=== PATIENT | female | born 1965 | race Caucasian/White ===

== ENCOUNTER → 2024-04-21 | Outpatient (CLI) | payer BC, SELFPAY ==
[2024-04-21 12:37] LABS: Basophils # (Auto) 0.1 Thou/mm3 (0.0-0.2); Basophils % (Auto) 1 % (0-2.5); Eosinophils # (Auto) 0.1 Thou/mm3 (0.0-0.5); Eosinophils % (Auto) 2 % (0-10); Hematocrit 38.2 % (36.0-46.0); Hemoglobin 12.6 g/dL (12.0-16.0); Immature Granulocytes % (Auto) 1 % (0-0); Immature Granulocytes Auto 0.03 Thou/mm3 (0.00-0.00); Lymphocytes % (Auto) 30 % (10-50); Mean Corpuscular Hemoglobin 29.5 pg (25.0-35.0); Mean Corpuscular Volume 90 fL (80-100); Monocytes # (Auto) 0.4 Thou/mm3 (0.0-0.8); Monocytes % (Auto) 6 % (0-12); Neutrophils % (Auto) 61 % (37-80); Nucleated Red Blood Cell % 0 /100 WBC (0); Platelet Count 372 Thou/mm3 (140-440); RDW Standard Deviation 41.1 fL (36.4-46.3); Red Blood Count 4.27 Miln/mm3 (4.00-5.20); White Blood Count 6.6 Thou/mm3 (3.6-11.0)
[2024-04-21 12:43] LABS: INR 0.9 (0.9-1.3); Prothrombin Time 10.3 Seconds (9.0-12.2)
[2024-04-21 12:47] LABS: Anion Gap 7 (7-16); BUN/Creatinine Ratio 25 Ratio (12-20); Blood Urea Nitrogen 15 mg/dL (9-23); Carbon Dioxide 31.3 mMol/L (20.0-31.0); Chloride 106 mMol/L (98-107); Creatinine (Component) 0.6 mg/dL (0.6-1.3); Glucose 86 mg/dL (74-106); Osmolality,Calculated 286 (275-295); Potassium 4.4 mMol/L (3.4-5.1); Sodium 144 mMol/L (136-145); eGFR > 60 See Note
== END | disposition home or self-care (01) ==
LOC: COPL 11:27
PROVIDERS: PCP Internal Medicine; Referring Provider Internal Medicine; Visit Provider Internal Medicine
DX: I25.10 Atherosclerotic heart disease of native coronary artery without angina pectoris (principal); I48.91 Unspecified atrial fibrillation
CPT/HCPCS: 36415; 80048; 85025; 85610; 85730

== ENCOUNTER → 2024-08-08 | Outpatient (CLI) | payer BC, SELFPAY ==
--- NOTE | 2024-08-08 08:19 | XR_ITS ---
Examination: Diagnostic digital mammography, bilateral Computer aided detection 3-D breast Tomosynthesis, bilateral Date and time of exam: 08/08/2024, 8:25 AM Comparisons: September 2012 through December 2023 Indications:Six-month follow-up left breast nodular density. Technique: Nonmagnified MLO, CC views of the breasts to been obtained, reconstructed from 3-D Tomosynthesis images. R2 computer aided detection program utilized for evaluation of suspicious masses and/or abnormal calcifications. 3-D Tomosynthesis images obtained. Findings: There are scattered areas of fibroglandular density. Focal asymmetry left upper outer quadrant. Otherwise, no evidence of abnormal masses or suspicious calcifications. Stable right port partially obstructs the 12:00 region of the right breast. Stable right postbiopsy marker clips. Impression: Left focal asymmetry as above. Spot compression views and ultrasound evaluation recommended.
[2024-08-08 08:51] LABS: Quantiferon-TB* See Sep Rpt
[2024-08-08 09:05] LABS: Collection Type, Urine Clean Catch
[2024-08-08 09:28] LABS: Basophils # (Auto) 0.1 Thou/mm3 (0.0-0.2); Basophils % (Auto) 1 % (0-2.5); Eosinophils # (Auto) 0.2 Thou/mm3 (0.0-0.5); Eosinophils % (Auto) 2 % (0-10); Hematocrit 40.2 % (36.0-46.0); Hemoglobin 13.2 g/dL (12.0-16.0); Immature Granulocytes % (Auto) 0 % (0-0); Immature Granulocytes Auto 0.02 Thou/mm3 (0.00-0.00); Lymphocytes # (Auto) 1.7 Thou/mm3 (1.0-4.8); Lymphocytes % (Auto) 21 % (10-50); Mean Corpuscular HGB Conc 32.8 g/dl (31.0-37.0); Mean Corpuscular Hemoglobin 29.2 pg (25.0-35.0); Mean Corpuscular Volume 89 fL (80-100); Monocytes # (Auto) 0.4 Thou/mm3 (0.0-0.8); Monocytes % (Auto) 4 % (0-12); Neutrophils # (Auto) 5.6 Thou/mm3 (1.8-7.7); Neutrophils % (Auto) 71 % (37-80); Nucleated Red Blood Cell % 0 /100 WBC (0); Platelet Count 367 Thou/mm3 (140-440); RDW Standard Deviation 42.5 fL (36.4-46.3); Red Blood Count 4.52 Miln/mm3 (4.00-5.20); White Blood Count 7.9 Thou/mm3 (3.6-11.0)
[2024-08-08 09:38] LABS: Glucose Estimated Average 103 mg/dL (80-131); Hemoglobin A1C 5.2 % Hgb (4.8-6.0)
[2024-08-08 09:46] LABS: Amphetamine/Methamp Scrn,U Negative (Negative); Barbiturate Screen,Urine Negative (Negative); Benzodiazepines Screen,Urine Positive (Negative); Benzoylecgonine Screen, Ur Negative (Negative); Fentanyl Screen,Urine Negative (Negative); Opiate Screen,Urine Negative (Negative); THC Screen,Urine Negative (Negative)
[2024-08-08 09:48] LABS: Iron 90 mcg/dL (50-170); Percent Iron Saturation 23 % (20-55); Total Iron Binding Capacity 377 mcg/dL (250-425); Unsaturated Iron Binding 287 (225-295)
[2024-08-08 09:52] LABS: Alanine Aminotransferase 14 U/L (10-49); Albumin, Serum 4.2 gm/dL (3.4-4.8); Albumin/Globulin Ratio 1.9 (1.2-2.2); Alkaline Phosphatase 152 U/L (46-116); Anion Gap 9 (7-16); Aspartate Amino Transferase 19 U/L (0-34); BUN/Creatinine Ratio 28 Ratio (12-20); Bilirubin,Total 0.4 mg/dL (0.3-1.2); Blood Urea Nitrogen 17 mg/dL (9-23); C-Reactive Protein < 0.5 mg/dL (0.0-0.9); Calcium 9.5 mg/dL (8.3-10.6); Calcium (Corrected) 9.5 mg/dL (8.5-10.1); Carbon Dioxide 29.2 mMol/L (20.0-31.0); Cardiac Risk Estimate 2.3 RATIO (3.7-5.6); Chloride 107 mMol/L (98-107); Cholesterol 161 mg/dL (132-200); Creatinine (Component) 0.6 mg/dL (0.6-1.3); Folate > 24.00 ng/mL (>5.38); Free T4 (Free Thyroxine) 1.02 ng/dL (0.89-1.76); Globulin 2.2 gm/dL (2.3-3.5); Glucose 90 mg/dL (74-106); HDL Cholesterol 70 mg/dL (40-60); LDL Cholesterol,Calculated 78 mg/dL (0-130); Osmolality,Calculated 290 (275-295); Potassium 4.6 mMol/L (3.4-5.1); Sodium 145 mMol/L (136-145); Thyroid Stimulating Hormone 1.14 uIU/mL (0.55-4.78); Total Protein 6.4 gm/dL (5.7-8.2); Triglycerides 64 mg/dL (30-150); Vitamin B12 403 pg/mL (211-911); Vitamin D 25 Hydroxy Total 22.1 ng/mL (7.3-40.2); eGFR > 60 See Note
[2024-08-08 09:58] LABS: Bilirubin,Urine Negative (Negative); Blood,Urine Trace (Negative); Clarity,Urine Clear (Clear/Hazy); Color,Urine Yellow (Lt Yel-Yel); Glucose, Urine Negative (Negative); Ketones,Urine Negative (Negative); Leukocyte Esterase,Urine Positive (Negative); Nitrite,Urine Negative (Negative); Protein,Urine Negative (Neg - Trace); RBC,Urine 15 /hpf (0-3); Specific Gravity,Urine 1.019 (1.001-1.035); Squamous Epithelial Cell,Urine 2 /hpf (0-5); Urobilinogen,Urine Negative mg/dL (0.0-1.0); WBC,Urine 15 /hpf (0-5)
[2024-08-08 12:20] LABS: Sed Rate (ESR) 8 mm/hr (0-30)
[2024-08-11 11:18] LABS: HCV RNA, PCR <15 NOT DETECTED IU/mL
[2024-08-12 06:55] LABS: HCV RNA, PCR Log IU <1.18 NOT DETECTED Log IU/mL; T3 Uptake* 26 % (22-35); Thyroid Peroxidase Antibodies* 1 IU/mL (<9)
== END | disposition home or self-care (01) ==
LOC: CDIM 08:13 → COPL 08:36
PROVIDERS: Referring Provider Internal Medicine; Visit Provider Radiology Diagnostic Radiology
DX: N64.89 Other specified disorders of breast (principal); Z01.818 Encounter for other preprocedural examination; K58.0 Irritable bowel syndrome with diarrhea; R92.8 Other abnormal and inconclusive findings on diagnostic imaging of breast; Q44.4 Choledochal cyst; J02.9 Acute pharyngitis, unspecified; S92.315A Nondisplaced fracture of first metatarsal bone, left foot, initial encounter for closed fracture; R68.89 Other general symptoms and signs; R79.89 Other specified abnormal findings of blood chemistry; M54.6 Pain in thoracic spine; Z91.89 Other specified personal risk factors, not elsewhere classified; K91.1 Postgastric surgery syndromes; D49.0 Neoplasm of unspecified behavior of digestive system; K44.9 Diaphragmatic hernia without obstruction or gangrene; F41.9 Anxiety disorder, unspecified; D50.9 Iron deficiency anemia, unspecified; J20.8 Acute bronchitis due to other specified organisms; M54.2 Cervicalgia; M25.471 Effusion, right ankle; U07.1 COVID-19; R42 Dizziness and giddiness; F41.0 Panic disorder [episodic paroxysmal anxiety]; F43.11 Post-traumatic stress disorder, acute; G25.81 Restless legs syndrome; R00.2 Palpitations; B37.31 Acute candidiasis of vulva and vagina; Z45.2 Encounter for adjustment and management of vascular access device; N39.0 Urinary tract infection, site not specified; R23.0 Cyanosis; Z11.1 Encounter for screening for respiratory tuberculosis; M54.31 Sciatica, right side; R05.9 Cough, unspecified; G43.011 Migraine without aura, intractable, with status migrainosus; Z12.31 Encounter for screening mammogram for malignant neoplasm of breast; R74.8 Abnormal levels of other serum enzymes; M62.838 Other muscle spasm; Z78.0 Asymptomatic menopausal state; R00.1 Bradycardia, unspecified; I10 Essential (primary) hypertension; Z95.1 Presence of aortocoronary bypass graft; R10.9 Unspecified abdominal pain; J44.9 Chronic obstructive pulmonary disease, unspecified; K56.699 Other intestinal obstruction unspecified as to partial versus complete obstruction; F41.1 Generalized anxiety disorder; J20.9 Acute bronchitis, unspecified; R41.3 Other amnesia; M25.669 Stiffness of unspecified knee, not elsewhere classified; Z23 Encounter for immunization
CPT/HCPCS: 36415; 77062; 77066; 80053; 80061; 80307; 81001; 82306; 82607; 82746; 83036; 83540; 83550; 83735; 84439; 84443; 84479; 85025; 85652; 86140; 86376; 86480; 87522; G0279

== ENCOUNTER → 2024-12-19 | Outpatient (CLI) | payer BC, SELFPAY ==
[2024-12-23 13:50] LABS: Sjogren's antibody (SS-A) <1.0 NEG AI (<1.0 NEGATIVE)
[2024-12-26 06:56] LABS: Sjogren's Antibody (SS-B) <1.0 NEG AI (<1.0 NEGATIVE)
== END | disposition home or self-care (01) ==
LOC: COPL 16:18
PROVIDERS: PCP Internal Medicine; Referring Provider Student in an Organized Health Care Education/Training Program; Visit Provider Student in an Organized Health Care Education/Training Program
DX: H04.123 Dry eye syndrome of bilateral lacrimal glands (principal)
CPT/HCPCS: 36415; 86235

== ENCOUNTER → 2025-02-23 | Outpatient (CLI) | payer BC, SELFPAY ==
--- NOTE | 2025-02-23 09:41 | XR_ITS ---
Examination: Knee bilateral, 6 views Technique: Knee AP, lateral, oblique each knee total 6 views Date and time of exam: February 23, 2025, 0950 hours INDICATIONS: Bilateral knee pain 1 year. FINDINGS: Moderate osteopenia. Bilateral mild narrowing medial joint spaces Bilateral mild osteoarthritis patellofemoral joints No fractures IMPRESSION: Mild osteoarthritis medial patellofemoral joint
== END | disposition home or self-care (01) ==
LOC: CDIM 09:32
PROVIDERS: PCP Internal Medicine; Referring Provider Nurse Practitioner Family; Visit Provider Nurse Practitioner Family
DX: M17.0 Bilateral primary osteoarthritis of knee (principal)
CPT/HCPCS: 73562

== ENCOUNTER 2025-04-11 13:19 | Outpatient (AMB) | payer BC, SELFPAY ==
[2025-04-11 13:39] VITALS: BP 122/84; PULSE 62; RESP 18; TEMP 36.5; O2SAT 97; BMI 28.4
--- NOTE | 2025-04-11 13:39 | PD.ORTHCLVIS ---
Vital signs 04/11/25 13:39 Height 1.47 m Height Method Measured Weight 61.689 kg Weight Measurement Method Estimated by Patient BMI 28.4 BP 122/84 Blood Pressure Source Automatic Cuff Blood Pressure Location Left Upper Arm Position Sitting Respiration 18 Pulse 62 Pulse Source Monitor Temp 97.7 F Temp Source Temporal Artery Scan Pulse Oximetry (%) 97 Oxygen Delivery Method Room Air Med/Allergies Allergies & Medications Allergies No Known Allergies Allergy (Verified 04/11/25 13:40) Medication Reconciliation enalapril maleate 10 mg tablet 10 mg PO QDAY High Blood Pressure ##0 03/18/13 [History Confirmed 04/11/25] alprazolam 1 mg tablet (Xanax) 1 mg PO PRN PRN Cramps 06/14/21 [History Confirmed 04/11/25] atorvastatin 10 mg tablet 10 mg PO DAILY 06/14/21 [History Confirmed 04/11/25] diphenoxylate-atropine 2.5 mg-0.025 mg tablet (Lomotil) 2.5 tab PO DAILY 06/14/21 [History Confirmed 04/11/25] estradiol 0.5 mg tablet 0.5 mg PO DAILY 06/14/21 [History Confirmed 04/11/25] cyclobenzaprine 10 mg tablet 10 mg PO HS #14 tabs 07/16/21 [Rx Confirmed 04/11/25] meloxicam 7.5 mg tablet 7.5 mg PO QDAY #14 tabs 07/16/21 [Rx Confirmed 04/11/25] oxycodone-acetaminophen 5 mg-325 mg tablet (Percocet) 1 tab PO TID PRN pain #15 tabs 09/25/21 [Rx Confirmed 04/11/25] Exam Exam Patient is in no acute distress and is cooperative with the examination today. Breathing is nonlabored. In no respiratory distress. Bilateral extremities were evaluated and demonstrates sensation intact to light touch. Palpable pedal pulses are present. No significant edema is present. Bilateral hips were examined. The patient has no pain with log roll of the hips. Internal rotation to 30 degrees and external rotation to 30 degrees is painless. Negative FADIR. The left knee was examined. The left knee is in varus alignment. Range of motion from 0-115 degrees. Knee is stable to varus and valgus as well as AP translation with <5mm. Patient has a negative McMurrays. There is no pain with patellofemoral compression and no crepitus noted. The knee is tender to palpation medially. The right knee was also examined. The right knee is in varus alignment. Range of motion from 0-120 degrees. Knee is stable to varus and valgus as well as AP translation with <5mm. Patient has a negative McMurrays. There is no pain with patellofemoral compression and no crepitus noted. The knee is tender to palpation medially. X-rays demonstrate moderate arthritis of the bilateral knees Assessment and Plan Problem List (1) Degenerative arthritis of knee, bilateral: Status: Acute Plan: ASSESSMENT AND PLAN 1. Bilateral knee pain: The patient reports bilateral knee pain for over 3 years, with the right knee being more severely affected. She experiences clicking sensations and occasional limping. The pain has worsened over time, and she has not had any previous treatments such as injections or physical therapy. Ibuprofen has been helping to some extent. Recommend knee cortisone injection as patient would like to proceed with conservative treatment at this time. The risks and benefits of the procedure were reviewed with the patient and patient gave verbal consent to continue with the procedure. Procedure: performed by Dr. Cervantes Using sterile technique the Right knee was thoroughly prepped with alcohol, and approximately 1 cc of Depo-Medrol 80mg/mL and 4 cc of 0.2% ropivacaine was injected without resistance into the medial tibial femoral joint space. The patient tolerated the procedure. Recommend knee cortisone injection as patient would like to proceed with conservative treatment at this time. The risks and benefits of the procedure were reviewed with the patient and patient gave verbal consent to continue with the procedure. Procedure: performed by Dr. Cervantes Using sterile technique the leftknee was thoroughly prepped with alcohol, and approximately 1 cc of Depo-Medrol 80mg/mL and 4 cc of 0.2% ropivacaine was injected without resistance into the medial tibial femoral joint space. The patient tolerated the procedure. 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) Surgical Proc/IM SQ injection Minor Surgical Procedure: Yes (BILATERAL KNEE INJECTION) Medication Given Medication Given Medication Given: Yes Documented Dose Given: 2 Route: Infiitration Medication Given Medication Given Medication Given: Yes Documented Dose Given: 8 Route: Infiitration Office Meds methylprednisolone acetate 80 mg/mL suspension for injection Performing Provider: Rosalio Cervantes MD Performing Location: [facility] Administered by: Rosalio Cervantes MD on 04/11/25 13:58 Dose Route Admin Location Dispensed Lot Number Expiration Date Package [facility] NDC Flying Shear Operator 160 mg intra-articular KNEE 2 mL [id number] 12/31/26 [address]-5 [id number] [employer] ropivacaine (PF) 2 mg/mL (0.2 %) injection solution Performing Provider: Rosalio Cervantes MD Performing Location: [facility] Administered by: Rosalio Cervanets MD on 04/11/25 13:58 Dose Route Admin Location Dispensed Lot Number Expiration Date Package NDC NDC Flying Shear Operator 40 mL Infiltration KNEE 40 mL [id number] 09/30/26 6076-5302-56 [id number] [facility] Intake Visit Data Collection New Patient or Established: New Patient (never been to [facility]) Reason for Visit:: BILATERAL KNEE PAIN Seen by Clinical Staff ONLY (RN/MA): No Eap Consultant Required: No PCP or OBGYN visit in last 3 months: Yes Hx Now: No Do You Feel Safe at Home: Yes Authorities Contacted: N/A Questionairres Past Medical History Past Medical History Have you ever been diagnosed with any of the following: Neurological Problems Seizures: No Cardiology Problems Congestive Heart Failure: No Hypertension: Yes Respiratory Problems Chronic Obstructive Pulmonary Disease (COPD): No Asthma: No Sleep Apnea: No Stomache/Intestinal Problems Gall Bladder Disease: Yes Genital/Urinary Problems Renal Disease: No Kidney Stones: Yes Musculoskeletal Problems Arthritis: Yes Head,Eye,Nose,Throat Problems Cataracts: Yes Endocrine Problems Diabetes Mellitus Type 1: No Diabetes Mellitus Type 2: No Parathyroid Disease: Yes Blood Problems Anemia: Yes Sickle Cell Disease: No Psychologic Problems Depression: Yes Other Problems Blood Transfusions: No Blood Transfusion Reaction: No Anesthesia Reactions: No Surgical History Pacemaker: No Subjective Visit Visit for: new patient and knee Immunization / Flu Flu Vaccine in the Last 12 Months: No Flu Vaccine Exclusion Criteria: Refused by Patient History of Present Illness Chief complaint: BILATERAL KNEE PAIN Date of injury / onset of symptoms: 3 YEARS HISTORY OF PRESENT ILLNESS I, Rosalio Cervantes, have obtained verbal consent from the patient, to be recorded during this encounter which may include, but not limited to, medical history, examination, treatment plans, and relevant health information.? Patient was informed that recording will be read and reviewed by myself before inclusion in the medical chart. The patient is a 59-year-old female who presents today with bilateral knee pain that she has been experiencing for over 3 years. She reports persistent discomfort in both knees, with the right knee being more severely affected. She describes a clicking sensation in her knees during ambulation. The pain is located both anteriorly and posteriorly in the knee. The pain has been intermittent over the past 3 years but has progressively worsened. She also experiences stiffness in her calves, which occasionally prevents her from bending her legs, a symptom she has been dealing with for approximately 30 years. This stiffness impedes her ability to lift her legs. She has no history of renal issues. She has not sought medical attention for this issue due to the absence of pain during her previous doctor's visits. The pain is severe enough to cause a limp on certain days. Her daily routine used to include walking 5 miles, but she has been unable to maintain this activity for the past 6 to 7 months. She is currently managing the pain with ibuprofen. Personal History Occupation: RETIRED Red flag PMH: none Pain Pain level (0-10): 6 Pain location: inside (medial), outside (lateral), anterior and posterior Pain quality: dull Pain timing: increases with activity Associated signs & symptoms: weakness and stiffness Ambulatory data Ambulatory device: none Walking distance (blocks): 1 Treatments Number of previous injections: 0 Improvement with previous injections: No Number of Physical Therapy sessions: 0 Improvement with PT: No Improvement with NSAIDS: yes (IBUPROFEN) Review of Systems Review of Systems: All systems negative unless otherwise noted in HPI.
--- NOTE | 2025-04-11 13:50 | XR_ITS ---
Examination: Knee bilateral, AP, lateral, and skyline views of the patella both right and left knees views Technique: Knee AP, lateral, oblique Date and time of exam: 04/11/2025 at 2:06 p.m. CLINICAL INDICATION: Bilateral knee pain for several weeks, no known trauma FINDINGS: In the right knee, there is narrowing of the patellofemoral joint space laterally, and the patella is minimally laterally subluxed. All of the visible bones otherwise appear entirely normal. The infrapatellar tendon appears normal there is no evidence of a knee joint effusion. There is minimal degenerative narrowing of the medial joint compartment in the right knee there is probable very mild osteoporosis. In the left knee, there is no significant narrowing of the joint space either medially or laterally. There is moderate degenerative narrowing of the patellofemoral joint space at its lateral aspect, and there is very minimal lateral subluxation of the patella in relationship to the femur. Infrapatellar ligament appears normal, there is no evidence of a joint effusion. IMPRESSION: 1. Mild generalized osteoporosis, perfectly consistent with the patient's sex and age. 2 very minor degenerative narrowing of the articular cartilage in the mid medial compartment of the right knee 3 there is significant narrowing of the patella femoral joint space laterally, in both right and left knees, with minimal lateral subluxation of the patella on the left and moderate lateral subluxation of the patella on the right, seen on the skyline views.
== END 2025-04-11 14:11 | disposition home or self-care (01) ==
LOC: HODSRG 13:19
PROVIDERS: PCP Internal Medicine; Referring Provider Internal Medicine; Supervising Provider Orthopaedic Surgery Adult Reconstructive Orthopaedic Surgery; Visit Provider Orthopaedic Surgery Adult Reconstructive Orthopaedic Surgery
DX: M17.0 Bilateral primary osteoarthritis of knee (principal); M25.562 Pain in left knee; M25.561 Pain in right knee; I10 Essential (primary) hypertension; M81.8 Other osteoporosis without current pathological fracture
CPT/HCPCS: 20610; 73564; 99203; J1010; J2795; G0463

== ENCOUNTER → 2025-05-02 | Outpatient (CLI) | payer BC, SELFPAY ==
--- NOTE | 2025-05-02 13:00 | XR_ITS ---
Examination: Breast ultrasound complete, bilateral Date and time of exam: May 02, 2025, 1355 hours INDICATIONS: Mammogram August 08, 2024 focal asymmetry upper outer quadrant left breast Technique: Real-time grayscale ultrasonographic imaging bilateral breasts, including all 4 quadrants as well as nipple retroareolar and axillary regions. Findings: Sonographic images right and left breast demonstrate no cystic or solid masses IMPRESSION: BI-RADS Category 1: Negative studies
--- NOTE | 2025-05-02 14:00 | XR_ITS ---
Examination: Diagnostic digital mammography, bilateral Computer aided detection 3-D breast Tomosynthesis, bilateral Date and time of exam: 5, 2:19 p.m. Comparisons: May 2021 through August 2024 Indications: Left focal asymmetry seen on prior exam Technique: Nonmagnified MLO, CC views of the breasts to been obtained, reconstructed from 3-D Tomosynthesis images. R2 computer aided detection program utilized for evaluation of suspicious masses and/or abnormal calcifications. 3-D Tomosynthesis images obtained. Findings: There are scattered areas of fibroglandular density. No evidence of abnormal masses or suspicious calcifications. Stable benign-appearing asymmetry upper left breast. Stable post biopsy marker clips. Stable right -sided Port-A-Cath. Impression: BI-RADS category 2: Benign findings Recommend 1 year follow-up mammogram
== END | disposition home or self-care (01) ==
LOC: CDIM 13:24
PROVIDERS: PCP Nurse Practitioner Family; Referring Provider Nurse Practitioner Family; Visit Provider Nurse Practitioner Family
DX: R92.323 Mammographic fibroglandular density, bilateral breasts (principal)
CPT/HCPCS: 76641; 77062; 77066; G0279